=== PATIENT | female | born 1985 | race Caucasian/White ===

== ENCOUNTER 2016-12-24 19:06 | Outpatient (CLI) | payer OTHER ==
[2016-12-24] MEDS ORDERED: FLUCONAZOLE 100 MG TABLET PO ONE (19:59)
[2016-12-24] MEDS ORDERED: FLUCONAZOLE 100 MG TABLET ONE (20:17)
--- NOTE | 2016-12-24 20:32 | Non Stress Test Report ---
Non Stress Test Datetime Report Generated by CPN: 12/24/2016 20:31 DEMOGRAPHIC Test Number: 1 EGA NST: 34.6 INDICATION Indication for Study: Ordered by Provider MONITORING Monitor Explained: Monitor Explained; Test Explained; Patient Verbalized Understanding Time on Monitor: 12/24/2016 19:23 Time off Monitor: 12/24/2016 20:25 NST Duration: 62 NST INTERVENTIONS NST Interventions: PO Hydration; Reposition Patient Physician Notified NST: Dr. Neilsen BABY A: [id number] BABY A Movement : Present Contraction Frequency : occasional FHR Baseline : 135 Accelerations : 15X15 Decelerations : None Variability : Moderate 6-25bpm NST Review: Meets Criteria for Reactive NST NST Review and Verified By : Kaiser Hagen RN NST Results: Reactive NST REPORT Report Trigger: Send Report
== END 2016-12-24 20:36 | disposition home or self-care (01) ==
LOC: LC 19:06
PROVIDERS: ATTEND Specialist
PROC: 4A1HXCZ Monitoring of Products of Conception, Cardiac Rate, External Approach (ICD-10-PCS; principal; 2016-12-24)
DX: O47.03 False labor before 37 completed weeks of gestation, third trimester (principal); Z3A.34 34 weeks gestation of pregnancy
CPT/HCPCS: 59025

== ENCOUNTER 2017-01-23 05:08 | Inpatient (IN) | payer OTHER ==
[2017-01-21 10:52] LABS: ABSOLUTE LYMPHOCYTES (AUTO) 1.8 10^3/uL (0.5-4.7); ABSOLUTE MONOCYTES (AUTO) 0.8 10^3/uL (0.1-1.4); ABSOLUTE NEUT (AUTO) 8.6 10^3/uL (1.7-8.2); BASOPHILS % (AUTO) 0.2 % (0-2); EOSINOPHILS % (AUTO) 0.4 % (0-6); HEMATOCRIT 38.3 % (36.0-47.0); HEMOGLOBIN 12.5 g/dL (12.0-15.5); HGB HCT DIFFERENCE -0.8; LYMPHOCYTES % (AUTO) 15.9 % (13-45); MEAN CORPUSCULAR HEMOGLOBIN 28.7 pg (27.0-33.4); MEAN CORPUSCULAR HGB CONC 32.6 g/dL (32.0-36.0); MEAN CORPUSCULAR VOLUME 88 fl (80-97); MONOCYTES % (AUTO) 7.5 % (3-13); RED BLOOD COUNT 4.34 10^6/uL (3.72-5.28); WHITE BLOOD COUNT 11.3 10^3/uL (4.0-10.5)
[2017-01-21 10:56] LABS: APPEARANCE,URINE SLIGHTLY-CLOUDY; BILIRUBIN,URINE NEGATIVE (NEGATIVE); GLUCOSE, URINE NEGATIVE (NEGATIVE); KETONES,URINE NEGATIVE (NEGATIVE); LEUKOCYTE ESTERASE,URINE NEGATIVE (NEGATIVE); NITRITE,URINE NEGATIVE (NEGATIVE); PROTEIN,URINE NEGATIVE (NEGATIVE); URINE SPECIFIC GRAVITY 1.004; UROBILINOGEN,URINE NEGATIVE mg/dL (<2.0)
[2017-01-21 11:10] LABS: URINE BARBITURATES SCREEN NEGATIVE; URINE METHADONE SCREEN NEGATIVE; URINE OPIATES LOW NEGATIVE; URINE PHENCYCLIDINE SCREEN NEGATIVE
[~2017-01-23 05:08] MED LIST: CEFAZOLIN 1 GM/D5W RTU 1 GM/50 ML RTUPB IV PRN; LACTATED RINGERS 1000 ML IV PRN; LIDOCAINE 0.5% INJ-PF (5 MG/ML) 50 ML SDV SUBCUT PRN; RINGERS SOLUTION,LACTATED 2,000 ML IV PRN
[2017-01-23] MEDS ORDERED: OXYTOCIN 10 UNIT/ML VIAL ONE (07:29)
[2017-01-23] MEDS ORDERED: FENTANYL CITRATE INJ/PF 100 MCG/2 ML AMPUL ONE (07:29)
[2017-01-23] MEDS ORDERED: EPHEDRINE SULFATE INJ 50 MG/1 ML AMPULE ONE (07:29)
[2017-01-23] MEDS ORDERED: OXYTOCIN/NORMAL SALINE 20 UNIT/1,000 ML RTUINJ ONE ×2 (07:29→10:12)
[2017-01-23] MEDS ORDERED: MIDAZOLAM 2 MG/2 ML INJ ONE (07:29)
[2017-01-23] MEDS ORDERED: METHYLERGONOVINE MALEATE INJ/PF 0.2 MG/1 ML AMPULE ONE (07:30)
[2017-01-23] MEDS ORDERED: ACETAMINOPHEN 100 ML IV ONE (07:30)
[2017-01-23] MEDS ORDERED: ONDANSETRON HCL INJ/PF 4 MG/2 ML SDV IV PRN (07:50)
[2017-01-23] MEDS ORDERED: PROMETHAZINE HCL INJ 25 MG/1 ML VIAL IV PRN ×3 (07:50→09:17)
[2017-01-23] MEDS ORDERED: OXYCODONE-ACETAMINOPHEN 5-325 MG TABLET PO PRN ×3 (07:50→09:17)
[2017-01-23] MEDS ORDERED: MEPERIDINE HCL/PF INJ 25 MG/1 ML DISP.SYRIN IV PRN (07:50)
[2017-01-23] MEDS ORDERED: MORPHINE SULFATE 10 MG/ML INJ IV PRN (07:50)
[2017-01-23] MEDS ORDERED: DIPHENHYDRAMINE HCL 50 MG/ML VIAL IV PRN (07:50)
[2017-01-23] MEDS ORDERED: FENTANYL CITRATE INJ/PF 100 MCG/2 ML AMPUL IV PRN ×3 (07:50)
[2017-01-23] MEDS ORDERED: RINGERS SOLUTION,LACTATED 1,000 ML IV PRN (09:17)
[2017-01-23] MEDS ORDERED: OXYTOCIN/NORMAL SALINE 1,000 ML IV PRN (09:17)
[2017-01-23] MEDS ORDERED: ACETAMINOPHEN 325 MG TABLET PO PRN (09:17)
[2017-01-23] MEDS ORDERED: DIPH/PERTUSS(ACELL)/TETANUS VAC/PF 0.5 ML SYR (>=10YO) IM PRN (09:17)
[2017-01-23] MEDS ORDERED: SIMETHICONE 80 MG TAB.CHEW PO PRN (09:17)
[2017-01-23] MEDS ORDERED: MORPHINE SULFATE 10 MG/ML INJ IM PRN (09:17)
[2017-01-23] MEDS ORDERED: MEASLES,MUMPS&RUBELLA VACC/PF 0.5 ML VIAL SUBCUT PRN (09:17)
--- NOTE | 2017-01-23 09:48 | OPERATIVE REPORT E ---
Operative Report NAME: JASMYN CASAREZ : 1985 AGE: 31Y DATE OF SURGERY: 01/23/2017 ROOM: 228 PREOPERATIVE DIAGNOSES: 1. IUP at 39+ weeks. 2. Previous . POSTOPERATIVE DIAGNOSES: 1. IUP at 39+ 2. Previous . PROCEDURE: Repeat low transverse hysterotomy section. SURGEON: SONG LUEVANO M.D. ANESTHESIA: Dr. Todd with a spinal. ESTIMATED BLOOD LOSS: 600 mL. FINDINGS: A female in cephalic presentation with Apgars of 9 and 9. Weight 7 pounds 14 ounces. COMPLICATIONS: None. SPECIMENS REMOVED: None. PROCEDURE IN DETAIL: The patient was taken to the operating room, prepared, and draped in normal sterile fashion in supine position with a leftward tilt. A transverse skin incision was made following the patient's previous scar and carried through to the underlying layer of fascia with the same scalpel. The fascia was excised in the midline and extended laterally with [place]el[place] scissors. The fascia was then dissected sharply from the rectus muscles both superiorly and inferiorly with [place] scissors. Rectus muscle divided and the peritoneal cavity was entered bluntly with surgeon finger fracture with good visualization of the bladder and the uterus. The bladder blade was inserted. The hysterotomy was nicked with a scalpel and extended laterally with surgeon finger fracture. The infant was then delivered atraumatically and the nose and mouth were suctioned with the suction bulb and the cord was clamped and cut. The infant was handed off to waiting pediatricians. Cord blood was collected and the placenta was removed manually. The uterus was exteriorized and cleared of clots and debris. The hysterotomy was closed with 0 Monocryl in a running locked fashion. A second layer of the same suture was used for an imbrication stitch to ensure hemostasis. A small amount of oozing was noted from the serosal edge. This was tied off with a [id number] stitch of 2-0 chromic. The uterus was then returned to the abdomen and the peritoneal cavity was cleared of clots and debris. The hysterotomy was reinspected and found to be hemostatic. The rectus muscle and peritoneum were then reapproximated with a mattress stitch of 2-0 chromic. The fascia was closed with 0 Vicryl. The subcutaneous layer was closed with plain catgut and the skin was closed with 4-0 Vicryl. Patient tolerated the procedure well. Sponge, lap, and needle counts were correct x2. Patient was taken to recovery in stable condition. DICTATING PHYSICIAN: SONG LUEVANO M.D. [id number] PHY#: [id number] ID: [id number] JOB#: [id number] ACCT: [id number] cc:SONG LUEVANO M.D. >
[2017-01-23] MEDS: DOCUSATE SODIUM 100 MG CAPSULE PO SCH ×2 (10:55→17:14)
[2017-01-23] MEDS: PRENATAL VITAMIN W-O CA NO5/FE FUMARATE/FA CAPSULE PO SCH (10:55)
[2017-01-23] MEDS ORDERED: KETOROLAC TROMETHAMINE 60 MG/2 ML SDV ONE (12:01)
[2017-01-23] MEDS ORDERED: ONDANSETRON HCL INJ/PF 4 MG/2 ML SDV ONE (12:01)
[2017-01-23] MEDS: KETOROLAC TROMETHAMINE INJ/PF 30 MG/1 ML SDV IV SCH ×2 (14:40→21:25)
[2017-01-23] MEDS: OXYCODONE-ACETAMINOPHEN 5-325 MG TABLET PO PRN ×2 (17:19→23:09)
[2017-01-24] MEDS: OXYCODONE-ACETAMINOPHEN 5-325 MG TABLET PO PRN ×3 (04:10→15:18)
[2017-01-24] MEDS: KETOROLAC TROMETHAMINE INJ/PF 30 MG/1 ML SDV IV SCH (05:26)
[2017-01-24 06:20] LABS: HEMATOCRIT 33.1 % (36.0-47.0); HGB HCT DIFFERENCE -0.1; MEAN CORPUSCULAR HGB CONC 33.4 g/dL (32.0-36.0); MEAN CORPUSCULAR VOLUME 90 fl (80-97); RED BLOOD COUNT 3.68 10^6/uL (3.72-5.28); RED CELL DISTRIBUTION WIDTH 14.8 % (11.5-14.0); WHITE BLOOD COUNT 12.3 10^3/uL (4.0-10.5)
[2017-01-24] MEDS: DOCUSATE SODIUM 100 MG CAPSULE PO SCH ×2 (10:21→17:12)
[2017-01-24] MEDS: PRENATAL VITAMIN W-O CA NO5/FE FUMARATE/FA CAPSULE PO SCH (10:21)
--- NOTE | 2017-01-24 11:18 | PDOC PROGRESS REPORT ---
Subjective-OB Subjective: Post Delivery Day: 31 year old. Denies any needs at this time Physical Exam (OB) Vital Signs: Temp Pulse Resp BP Pulse Ox 97.6 F 77 16 116/69 99 01/24/17 07:33 01/24/17 07:33 01/24/17 07:33 01/24/17 07:33 01/24/17 07:33 Intake & Output 01/23/17 01/24/17 01/25/17 06:59 06:59 06:59 Intake Total 1640 Output Total 1650 Balance -10 Weight 82.55 kg - Dressing Removed: No - honeycomb dressing Incision: Dressing - Lochia Lochia Amount: Heavy >50 ml Lochia Color: Rubra/Red - Abdomen Description: Tender, Soft Hernia Present: No Bowel Sounds: Normoactive Flatus Presence: Present Stool: No Fundal Description: Firm, Midline Fundal Height: u/u - u/2 Objective-Diagnostic Laboratory: 01/24/17 05:25 01/24/17 05:25 WBC 12.3 H RBC 3.68 L Hgb 11.0 L Hct 33.1 L MCV 90 MCH 30.0 MCHC 33.4 RDW 14.8 H Plt Count 170
[2017-01-24] MEDS ORDERED: IBUPROFEN 800 MG TABLET PO ONE (20:00)
[2017-01-24] MEDS: IBUPROFEN 800 MG TABLET PO SCH (23:41)
[2017-01-25] MEDS: IBUPROFEN 800 MG TABLET PO SCH ×3 (06:35→17:51)
[2017-01-25] MEDS: OXYCODONE-ACETAMINOPHEN 5-325 MG TABLET PO PRN (06:36)
[2017-01-25 08:53] VITALS: BP 109/65
[2017-01-25] MEDS: PRENATAL VITAMIN W-O CA NO5/FE FUMARATE/FA CAPSULE PO SCH (10:18)
[2017-01-25] MEDS: DOCUSATE SODIUM 100 MG CAPSULE PO SCH ×2 (10:19→17:51)
--- NOTE | 2017-01-25 11:28 | PDOC PROGRESS REPORT ---
Subjective-OB Subjective: Post Delivery Day: 31 year old. Denies any needs at this time. Ready to go home. Physical Exam (OB) Vital Signs: Temp Pulse Resp BP Pulse Ox 97.9 F 72 15 109/65 98 01/25/17 11:14 01/25/17 11:14 01/25/17 11:14 01/25/17 11:14 01/25/17 11:14 Intake & Output 01/24/17 01/25/17 01/26/17 06:59 06:59 06:59 Intake Total 1640 940 350 Output Total 1650 Balance -10 940 350 - Dressing Removed: No - D&I, no redness, swelling or drainage noted Incision: Well Approximated - Lochia Lochia Amount: Scant < 10 ml Lochia Color: Rubra/Red - Abdomen Description: Tender, Soft Hernia Present: No Bowel Sounds: Normoactive Flatus Presence: Present Stool: No Fundal Description: Firm, Midline Fundal Height: u/u - u/2 Objective-Diagnostic Laboratory: 01/24/17 05:25
--- NOTE | 2017-01-25 11:33 | PDOC DISCHARGE SUMMARY ---
Final Diagnosis Discharge Date: 01/25/17 Discharge Data - Discharge Medication Home Medications: Pnv No.122/Iron/Folic Acid [ Multi Tablet] 1 tab PO DAILY 01/23/17 Docusate Sodium [Colace 100 mg Capsule] 100 mg PO BID #30 capsule 01/25/17 Ibuprofen [Motrin 800 mg Tablet] 800 mg PO Q6 #30 tablet 01/25/17 Oxycodone HCl/Acetaminophen [Percocet 5-325 mg Tablet] 1 tab PO Q4HP PRN #20 tablet 01/25/17 Gestational Age: 39 wks Reason(s) for Admission: Ceasarean Section-Repeat Procedures: Ultrasound Intrapartum Procedure(s): : Low Cervical, Transverse - Data Baby 1 Female at 1 minute: 9 at 5 minutes: 9 Weight: 3.572 kg Home with Mother: Yes Complications: No - Diagnosis Test Laboratory: Temp Pulse Resp BP Pulse Ox 97.9 F 72 15 109/65 98 01/25/17 11:14 01/25/17 11:14 01/25/17 11:14 01/25/17 11:14 01/25/17 11:14 01/21/17 01/21/17 01/24/17 10:10 10:12 05:25 RBC 4.34 3.68 L Hgb 12.5 11.0 L Hct 38.3 33.1 L Urine Opiates Screen NEGATIVE - Discharge information/Instructions Discharge Activity: Activity As Tolerated, Balance Activity w/Rest, No Lifting Over 10 Pounds, No Lifting/Push/Pulling, Pelvic Rest, Slowly Increase Activity, No tub bath Discharge Diet: Regular Disposition: HOME, SELF-CARE Follow up with: [facility] in: 1, Weeks
--- NOTE | 2017-02-26 09:21 | PDOC DELIVERY SUMMARY ---
Delivery Summary - Maternal Hx : IV Hx # Term Pregnancies: 1 ABRIL: 01/29/17 Gestational Age: 39 wks Ruptured Membranes: AROM Time of Rupture: 08:10 Fluids: Clear - Delivery Presentation: Vertex Heart Rate Monitoring: Done Pre-Operatively Support Person Present: Yes Location: OR : Scheduled Placenta: Within Normal Limits Delivery of Placenta Date: 01/23/17 Delivery of Placenta Time: 08:11 - Medications Type of Anesthesia:: Spinal - Assess and Care Baby 1 Female Delivery of Infant Date: 01/23/17 Delivery of Infant Time: 08:10 at 1 minute: 9 at 5 minutes: 9 Preprinted Number On Band: [id number] Skin to Skin: No To Nursery At: 08:20 Mode of Transport: Bassinet - Delivery Personnel Pressroom Worker: DC Morris RN: DAVY FAM RN: BRENT JOEL MD: SONG LUEVANO
== END 2017-01-25 19:00 | disposition home or self-care (01) | DRG 766 ==
LOC: 2S 05:08
PROVIDERS: ADMIT Obstetrics & Gynecology; ATTEND Obstetrics & Gynecology
PROC: 4A1HXCZ Monitoring of Products of Conception, Cardiac Rate, External Approach (ICD-10-PCS; 2017-01-23)
PROC: 10D00Z1 Extraction of Products of Conception, Low, Open Approach (ICD-10-PCS; principal; 2017-01-23 07:45)
DX: O34.211 Maternal care for low transverse scar from previous cesarean delivery (principal); O36.63X0 Maternal care for excessive fetal growth, third trimester, not applicable or unspecified; Z83.3 Family history of diabetes mellitus; Z82.49 Family history of ischemic heart disease and other diseases of the circulatory system; Z3A.39 39 weeks gestation of pregnancy; Z37.0 Single live birth
CPT/HCPCS: 1961; 36415; 59025; 80307; 81001; 85025; 85027; 86850; 86900; 86901; 94799; J0131; J0690; J1885; J2210; J2250; J2270; J2405; J2590; J3010; J3490; J7120